=== PATIENT | female | born 1950 | race Caucasian/White ===

== ENCOUNTER 2019-01-15 15:01 | Emergency (ER) | payer MEDICARE, OTHER ==
[2019-01-15] MEDS ORDERED: Sodium Chloride 0.9% 10 ML Syringe FLUSH PRN (16:17)
[2019-01-15] MEDS ORDERED: HYDROmorphone 1 MG/ML Syringe IVPUSH STA (16:18)
[2019-01-15] MEDS ORDERED: Ondansetron 4 MG/2 ML SDV IVPUSH ONE (16:18)
[2019-01-15] MEDS ORDERED: Sodium Chloride 0.9% 1,000 ML IV SCH (16:30)
--- NOTE | 2019-01-15 16:35 | EDM.PDOC ---
ED HPI GENERAL MEDICAL PROBLEM - General Chief Complaint: Abdominal Pain Stated Complaint: ABDOMINAL CRAMPING WITH BLEEDING Time Seen by Provider: 01/15/19 15:44 Source of Information: Reports: Patient, RN Notes Reviewed History Limitations: Reports: No Limitations - History of Present Illness INITIAL COMMENTS - FREE TEXT/NARRATIVE: Patient is a 68-year-old female who presents to the ED today for the evaluation of crampy abdominal pain and rectal bleeding. She states that she has a history of right upper quadrant pain, bloating, weight gain around 6 months now. They have been managing this outpatient taveras and she is scheduled for colonoscopy this January 17. She states that she had some crampy abdominal pain that started yesterday she first felt somewhat constipated and she had some diarrhea. She noted that there was bright red blood in the toilet with the episodes of diarrhea. This has been happening on and off since yesterday she states that the cramping did subside early this morning and that the blood looked as if it was clotting off. It was not a liquid it was clots in the toilet. She called the surgical team to see if she should may be just takes some Imodium to relieve the diarrhea and they warned her that she needed further evaluation for the possibility of diverticulitis. She states that she has been off of her Coumadin since Monday and this she is prescribed for atrial fibrillation. She states that she normally has a BM around every 2-3 days. She denies any urinary symptoms, dizziness, fever, chest pain, shortness of breath or history of anemia. She states that she did feel a little bit weak and had some chills after the diarrhea episodes. She states that she sees did see Vangie Felix as a primary care provider by [facility] recently recommended that she be seen by Bernadine Valentine at the [facility] as they might get her in to a colonoscopy sooner. In his last 6 months and she's been up patient with the [facility] she has had a EMY and Holter monitor for further workup. She states that she has had bleeding from her colon before around 2001. She states that she is still a smoker smoking one half pack per day but denies alcohol use ordered further drug use. She notes that she has had a previous gallbladder removal but still has her uterus and ovaries. Abdomen Pain Score (Numeric/FACES): 6 - Related Data Allergies Allergy/AdvReac Type Severity Reaction Status Date / Time mold Allergy Cannot Verified 12/28/17 09:42 Remember pollen extracts Allergy Cannot Verified 12/28/17 09:42 Remember sulfacetamide Allergy Cannot Verified 12/28/17 09:43 Remember morphine AdvReac Vomiting Verified 03/25/16 09:42 DUST Allergy Cannot Uncoded 12/28/17 09:42 Remember Home Meds: Home Meds Cetirizine HCl [Zyrtec] 1 tab PO DAILY 01/15/19 [History] Diltiazem HCl [Diltiazem ER] 1 tab PO DAILY 01/15/19 [History] Gabapentin [Neurontin] 1 tab PO DAILY 01/15/19 [History] Ondansetron [Zofran ODT] 4 mg PO Q6H PRN #28 tab.dis 01/15/19 [Rx] Ranitidine HCl [Ranitidine] 150 mg PO DAILY 01/15/19 [History] Warfarin [Coumadin] 1 tab PO DAILY 01/15/19 [History] atorvaSTATin [Lipitor] 1 tab PO DAILY 01/15/19 [History] Past Medical History Cardiovascular History: Reports: Afib, High Cholesterol, Hypertension 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: 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: Neurological History: Reports: TIA - Past Surgical History Cardiovascular Surgical History: Reports: AAA Repair GI Surgical History: Reports: Cholecystectomy, Hernia Repair/Other Female Surgical History: Reports: Lithotripsy/ESWL Dermatological Surgical History: Reports: Skin Graft Social & Family History - Tobacco Use Smoking Status *Q: Current Every Day Smoker Years of Tobacco use: 60 Packs/Tins Daily: 1 - Caffeine Use Caffeine Use: Reports: Coffee - Recreational Drug Use Recreational Drug Use: No ED ROS GENERAL - Review of Systems Review Of Systems: See Below Constitutional: Reports: Chills, Weakness, Weight Gain (And bloating over the last 6 months.). Denies: Fever, Weight Loss HEENT: Reports: No Symptoms Respiratory: Reports: No Symptoms Cardiovascular: Reports: No Symptoms Endocrine: Reports: No Symptoms GI/Abdominal: Reports: Abdominal Pain, Bloody Stool, Diarrhea. Denies: Constipation, Nausea, Vomiting : Reports: No Symptoms Musculoskeletal: Reports: No Symptoms Skin: Reports: No Symptoms Neurological: Reports: No Symptoms Psychiatric: Reports: No Symptoms Hematologic/Lymphatic: Reports: No Symptoms Immunologic: Reports: No Symptoms ED EXAM, GI/ABD - Physical Exam Exam: See Below Exam Limited By: No Limitations General Appearance: Alert, WD/WN, No Apparent Distress Ears: Normal External Exam Nose: Normal Inspection, Normal Mucosa, No Blood Throat/Mouth: Normal Inspection, Normal Lips, Normal Oropharynx, Normal Voice, No Airway Compromise Head: Atraumatic, Normocephalic Neck: Normal Inspection Respiratory/Chest: No Respiratory Distress, Lungs Clear, Normal Breath Sounds, No Accessory Muscle Use, Chest Non-Tender Cardiovascular: Normal Peripheral Pulses, Regular Rate, Rhythm, No Murmur GI/Abdominal Exam: Normal Bowel Sounds, Soft, No Distention, No Mass, Tender ( Diffuse tenderness lower abdomen). No: Guarding, Rigid, Rebound Rectal (Female) Exam: Bloody Stool (As reported by the patient.) Extremities: Normal Inspection, Normal Capillary Refill Neurological: Alert, Oriented, No Motor/Sensory Deficits Psychiatric: Normal Affect, Normal Mood Skin Exam: Warm, Dry, Intact, Normal Color, No Rash Course - Vital Signs Last Recorded V/S: Last Vital Signs Temp 98.6 F 01/15/19 15:30 Pulse 64 01/15/19 15:30 Resp 18 01/15/19 15:30 BP 162/77 H 01/15/19 15:30 Pulse Ox 96 01/15/19 15:30 - Orders/Labs/Meds Orders: Active Orders 24 hr Category Date Time Status Peripheral IV Care [RC] . DIRECTED Care 01/15/19 16:17 Ordered Abdomen Pelvis w Cont [CT] Stat Exams 01/15/19 16:18 Ordered UA W/MICROSCOPIC [URIN] Stat Lab 01/15/19 16:18 Ordered Sodium Chloride 0.9% [Normal Saline] 1,000 ml Med 01/15/19 16:30 Ordered IV ASDIRECTED Sodium Chloride 0.9% [Saline Flush] Med 01/15/19 16:17 Ordered 10 ml FLUSH ASDIRECTED PRN Peripheral IV Insertion Adult [OM.PC] Routine Oth 01/15/19 16:17 Ordered Medication Orders Sodium Chloride (Normal Saline) 1,000 mls @ 250 mls/hr IV ASDIRECTED THAO Last Admin: 01/15/19 16:53 Dose: 250 mls/hr Sodium Chloride (Saline Flush) 10 ml FLUSH ASDIRECTED PRN PRN Reason: Keep Vein Open Last Admin: 01/15/19 18:09 Dose: 10 ml Labs: Laboratory Tests 01/15/19 01/15/19 Range/Units 16:35 16:35 WBC 8.78 (3.98-10.04) K/mm3 RBC 5.07 (3.98-5.22) M/mm3 Hgb 14.5 (11.2-15.7) gm/L Hct 44.2 (34.1-44.9) % MCV 87.2 (79.4-94.8) fl MCH 28.6 (25.6-32.2) pg MCHC 32.8 (32.2-35.5) g/dl RDW Std Deviation 48.2 H (36.4-46.3) fL Plt Count 280 (182-369) K/mm3 MPV 9.6 (9.4-12.3) fl Neutrophils % (Manual) 52 (40-60) % Band Neutrophils % 0 (0-10) % Lymphocytes % (Manual) 39 (20-40) % Atypical Lymphs % 0 % Monocytes % (Manual) 6 (2-10) % Eosinophils % (Manual) 2 (0.7-5.8) % Basophils % (Manual) 1 (0.1-1.2) Platelet Estimate Adequate RBC Morph Comment Normal Sodium 140 (136-145) mEq/L Potassium 3.5 (3.5-5.1) mEq/L Chloride 103 (98-107) mEq/L Carbon Dioxide 26 (21-32) mEq/L Anion Gap 14.5 (5-15) BUN 23 H (7-18) mg/dL Creatinine 0.8 (0.55-1.02) mg/dL Est Cr Clr Drug Dosing 56.50 mL/min Estimated GFR (MDRD) > 60 (>60) mL/min BUN/Creatinine Ratio 28.8 H (14-18) Glucose 90 (80-115) mg/dL Calcium 9.5 (8.5-10.1) mg/dL Total Bilirubin 0.8 (0.2-1.0) mg/dL AST 14 L (15-37) U/L ALT 16 (14-59) U/L Alkaline Phosphatase 74 (46-116) U/L Total Protein 7.5 (6.4-8.2) g/dl Albumin 3.3 L (3.4-5.0) g/dl Globulin 4.2 gm/dL Albumin/Globulin Ratio 0.8 L (1-2) Meds: Medications Generic Name Dose Route Start Last Admin Trade Name Freq PRN Reason Stop Dose Admin Sodium Chloride 1,000 mls @ 250 mls/hr 01/15/19 16:30 01/15/19 16:53 Normal Saline IV 250 mls/hr ASDIRECTED THAO Administration Sodium Chloride 10 ml 01/15/19 16:17 01/15/19 18:09 Saline Flush FLUSH 10 ml ASDIRECTED PRN Administration Keep Vein Open Discontinued Medications Generic Name Dose Route Start Last Admin Trade Name Freq PRN Reason Stop Dose Admin Hydromorphone HCl 0.5 mg 01/15/19 16:18 01/15/19 16:48 Dilaudid IVPUSH 01/15/19 16:19 0.5 mg ONETIME STA Administration Iopamidol 100 ml 01/15/19 17:41 01/15/19 17:58 Isovue-300 (61%) IVPUSH 01/15/19 17:42 100 ml ONETIME ONE Administration Metoclopramide HCl 10 mg 01/15/19 17:46 01/15/19 18:09 Reglan IVPUSH 01/15/19 17:47 10 mg ONETIME ONE Administration Ondansetron HCl 4 mg 01/15/19 16:18 01/15/19 16:50 Zofran IVPUSH 01/15/19 16:19 4 mg ONETIME ONE Administration - Re-Assessments/Exams Free Text/Narrative Re-Assessment/Exam: 01/15/19 16:37 Patient presents to the ED for evaluation of rectal bleeding and abdominal pain. I have ordered a CBC, CMP, UA, CT abdomen and pelvis with contrast, IV with fluids, 0.5 mg IV Dilaudid and 4 mg IV Zofran in further management of this. She states that she has had a history of rectal bleeding in the past. Unsure if this could just be a GI bleed or if it is diverticulitis in nature. She is rather tender on the lower quadrants of her abdomen. 01/15/19 18:11 The nurse and x-ray tech told me that the patient was quite nauseous after drinking the oral contrast, I did order 10 the grams IV Reglan for this. Her labs are back and her hemoglobin is normal and other markers and a CBC are within normal limits. Her BUN was slightly elevated which would suggest that she was mildly dehydrated. I have ordered IV fluids and that should help combat this. CT result is pending at this time. She states that her pain is at a tolerable level and is not requesting anything for pain. 01/15/19 18:[address] is back and demonstrate possible mild diffuse colitis. Findings could be due to under distention artifact alternatively. Her hemoglobin level was normal at 14, and shows no other sign of acute blood loss. This should not hold her from having her colonoscopy on . I will provide the patient with the CT results so that they may show the surgery personnel. Departure - Departure Time of Disposition: 19:07 Disposition: Home, Self-Care 01 Condition: Fair Clinical Impression: Blood in stool - Discharge Information *PRESCRIPTION DRUG MONITORING PROGRAM REVIEWED*: No *COPY OF PRESCRIPTION DRUG MONITORING REPORT IN PATIENT HERMELINDO: No Instructions: Gastrointestinal Bleeding, [id number] Referrals: Vangie Felix PA [Primary Care Provider] - Forms: ED Department Discharge Additional Instructions: You have been evaluated in the ED for your bloody stools. Her CT demonstrated that you may have colitis, this should not hold you up from having her colonoscopy this January 17. You have been provided with the printed CT results to show the surgery crew. You have been provided with a prescription for Zofran 1 tab dissolvable under your tongue every 6-8 hours as needed for nausea. This was sent to the [facility] pharmacy in [facility] this is located by [address]. Please follow all previous instructions regarding your colonoscopy prep. I would recommend follow-up with the surgery crew tomorrow in regards of your CT results. Please return to the ED if your symptoms change or worsen. - My Orders Last 24 Hours: My Active Orders 01/15/19 16:17 Peripheral IV Care [RC] . DIRECTED Sodium Chloride 0.9% [Saline Flush] 10 ml FLUSH ASDIRECTED PRN Peripheral IV Insertion Adult [OM.PC] Routine 01/15/19 16:18 Abdomen Pelvis w Cont [CT] Stat UA W/MICROSCOPIC [URIN] Stat 01/15/19 16:30 Sodium Chloride 0.9% [Normal Saline] 1,000 ml IV ASDIRECTED - Assessment/Plan Last 24 Hours: My Active Orders 01/15/19 16:17 Peripheral IV Care [RC] . DIRECTED Sodium Chloride 0.9% [Saline Flush] 10 ml FLUSH ASDIRECTED PRN Peripheral IV Insertion Adult [OM.PC] Routine 01/15/19 16:18 Abdomen Pelvis w Cont [CT] Stat UA W/MICROSCOPIC [URIN] Stat 01/15/19 16:30 Sodium Chloride 0.9% [Normal Saline] 1,000 ml IV ASDIRECTED
[2019-01-15] MEDS ORDERED: Iopamidol 612 MG/ML 100 ML Bottle IVPUSH ONE (17:41)
[2019-01-15] MEDS ORDERED: Metoclopramide 10 MG/2 ML SDV IVPUSH ONE (17:46)
--- NOTE | 2019-01-16 08:12 | CT ---
CT abdomen and pelvis Technique: Multiple axial sections were obtained from above the dome of the diaphragm inferiorly to the pubic symphysis. Intravenous contrast and oral contrast was given. Oral contrast remains within the stomach. Comparison: Previous CT abdomen and pelvis exam of 01/01/18. Findings: Low-density lesion is noted within the left lobe of the liver measuring approximately 2.4 cm. This is most likely due to a cyst. This is stable from previous exam. Second small low density finding is seen within the right lobe. This is believed to be present on previous CT exam and appears without change most likely due to additional cyst which is too small to characterize by Hounsfield unit measurements. Small portion of the visualized lung bases are clear. Dense mitral annulus calcification is noted. Spleen appears within normal limits. Adrenal glands show bilateral nodules. These appeared to be stable from previous CT exam supporting benign etiology. Nodule within the left adrenal gland measures about 3.2 cm in size and nodule within the right adrenal gland measures about 3.6 cm in size. Differences in measurement from prior CT is due to different measurement techniques. Low-density lesion within the mid left kidney is seen which contains a calcification. This is felt to represent a complicated cyst measuring approximately 2.2 cm in size which is stable from previous exam. Smaller low density finding is seen inferiorly within the left kidney measuring 6 mm in size and is also stable. Small fatty lesion versus focal area of scar is seen within the mid right kidney which is felt to be stable and incidental. Exophytic cyst is noted off the right kidney measuring 2.5 cm which is also felt to be seen on previous exam. Pancreas shows a small focal fatty area within the neck which is felt to be incidental and stable. Surgical clips are seen from previous cholecystectomy. Aorta shows evidence of a stent which is stable. No contrast extravasation is seen outside the stent. No retroperitoneal adenopathy or mesenteric abnormalities are seen. Small fat-containing anterior abdominal hernia is seen next to the umbilicus. No pelvic mass or adenopathy is seen. Mild diverticuli are seen within the descending colon. No inflammatory change of diverticulitis is seen. No bowel dilatation is seen. Equivocal wall thickening within the descending colon. Uncertain if this is a real finding or due to lack of distention. Appendix is felt to be seen and is normal in size. Bone window settings were reviewed which show degenerative change scattered throughout the spine. Impression: 1. Multiple findings as noted above which are felt to be stable and benign. 2. Equivocal wall thickening within the colon involving the descending portion. As mentioned above, uncertain if this is due to colitis or due to lack of distention. Endoscopy could be considered to further evaluate. 3. Nothing acute is otherwise appreciated on CT study of the abdomen and pelvis. Diagnostic code #3 I agree with preliminary report from [facility], finalized on 01/15/19, 7:40 PM Central Time
== END 2019-01-15 19:34 | disposition home or self-care (01) ==
LOC: JD.ED 15:01
DX: K92.1 Melena (principal); I10 Essential (primary) hypertension; I48.91 Unspecified atrial fibrillation; F17.210 Nicotine dependence, cigarettes, uncomplicated; Z88.5 Allergy status to narcotic agent; Z88.2 Allergy status to sulfonamides; Z91.09 Other allergy status, other than to drugs and biological substances; Z79.01 Long term (current) use of anticoagulants; Z79.899 Other long term (current) drug therapy; Z86.73 Personal history of transient ischemic attack (TIA), and cerebral infarction without residual deficits; Z90.49 Acquired absence of other specified parts of digestive tract
CPT/HCPCS: 36415; 74177; 80053; 85007; 85027; 96361; 96374; 96375; 99284; J1170; J2405; J2765; J7040; Q9967

== ENCOUNTER 2019-01-31 08:14 | Day surgery (SDC) | payer MEDICARE, OTHER ==
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
[~2019-01-31 08:14] MED LIST: Lactated Ringers 1,000 ML IV SCH; Lidocaine 1% 6 ML ONE; Lidocaine 1%/Sod Bicarbonate in NS 8.4% 1 ML Syringe IDERM PRN; Propofol 200 MG/20 ML SDV ONE; Sodium Chloride 0.9% 10 ML Syringe FLUSH PRN
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
[2019-01-31] MEDS ORDERED: Midazolam 1 MG/ML 2 ML SDV ONE (09:48)
[2019-01-31] MEDS ORDERED: fentaNYL 100 MCG/2 ML SDV ONE (10:03)
--- NOTE | 2019-01-31 10:26 | PCM.OPNOTE ---
- General Post-Op/Procedure Note Date of Surgery/Procedure: 01/31/19 Operative Procedure(s): EGD WITH BIOPSY AND COLONOSOCOPY Pre Op Diagnosis: rectal bleeding and upper abdominal pain epigstric Post-Op Diagnosis: Same Anesthesia Technique: MAC Primary Surgeon: Edmund Eldridge EBL in mLs: 0 Complications: None Condition: Good
--- NOTE | 2019-01-31 10:32 | PCM48HPAN ---
Post Anesthesia Note - EVALUATION WITHIN 48HRS OF ANESTHETIC Vital Signs in Normal Range: Yes Patient Participated in Evaluation: Yes Respiratory Function Stable: Yes Airway Patent: Yes Cardiovascular Function Stable: Yes Hydration Status Stable: Yes Pain Control Satisfactory: Yes Nausea and Vomiting Control Satisfactory: Yes Mental Status Recovered: Yes Pulse Rate: 107 SaO2: 98 Resp Rate: 17 Temperature: 97.8 C Blood Pressure: 92/57
--- NOTE | 2019-02-01 07:25 | OR ---
DATE OF OPERATION: 01/31/2019 SURGEON: Edmund Eldridge MD PREOPERATIVE DIAGNOSIS: Epigastric pain. POSTOPERATIVE DIAGNOSIS: Epigastric pain. OPERATION PERFORMED: Esophagogastroduodenoscopy with biopsy. FINDINGS: She has a little redness in the antrum. Some incompetence of the hiatus. GE junction is located at 38 cm. A sliding hiatal hernia is noted with chronic esophagitis. Body, cardia, and fundus of the stomach are unremarkable as was the balance of the esophagus. The second portion of the duodenum, duodenal bulb, and pyloric channel did not show any acute pathology. ANESTHESIA: Done under IV sedation. DESCRIPTION OF PROCEDURE: The patient was taken to the endoscopy room, placed in a supine position, connected to monitoring equipment, given IV sedation, placed in the left lateral position. A bite block was inserted. Video Olympus gastroscope placed in the posterior oropharynx under direct vision, threaded past the cricopharyngeus, down the esophagus, into the stomach. The stomach was insufflated, and the scope passed through the pylorus to the second portion and then slowly withdrawn showing no acute pathology. Second portion of the duodenum, duodenal bulb, and pyloric channel were unremarkable. Antrum showed some redness. This was biopsied. J-maneuver was performed. Cardia, fundus, and body of the stomach were viewed. Incompetent hiatus was noted. GE junction located at 38 cm with a sliding hiatal hernia. There was no acute pathology at the GE junction. Rest of the esophagus viewed as the scope withdrawn was unremarkable. The patient tolerated the procedure, specimen sent to pathology in a labeled container, and IV sedation continued for colonoscopy. ESTIMATED BLOOD LOSS: MMODAL /[id number]
--- NOTE | 2019-02-01 07:30 | OR ---
DATE OF OPERATION: 01/31/2019 SURGEON: Edmund Eldridge MD PREOPERATIVE DIAGNOSIS: Rectal bleeding. POSTOPERATIVE DIAGNOSIS: Rectal bleeding. OPERATION PERFORMED: Colonoscopy to cecum. FINDINGS: Internal hemorrhoids. There were no angiodysplasias, neoplasias, large tumor masses, ulcerations, or hemorrhoids. ANESTHESIA: Done under IV sedation. DESCRIPTION OF PROCEDURE: The patient was taken to the endoscopy room having been connected to monitoring equipment and given IV sedation for upper GI endoscopy. This was continued for colonoscopy. She was placed in the left lateral position. Perianal area was inspected and was normal. Rectal exam showed good sphincter tone. A video Olympus colonoscope was then introduced into the rectum and threaded up without problem to the cecum, where the appendicular orifice was noted. The prep was excellent. [place] Cleansing Score grade A. The scope was slowly withdrawn showing the cecum, ascending colon, transverse colon, descending colon, sigmoid colon, and rectum. Retroflexed view was done showing internal hemorrhoids. The above noted was found. The patient tolerated the procedure and sent to recovery room in a stable condition. ESTIMATED BLOOD LOSS: MMODAL /[id number]
== END 2019-01-31 13:54 | disposition home or self-care (01) ==
LOC: JD.SDS 08:14
PROVIDERS: ATTEND Surgery
DX: K62.5 Hemorrhage of anus and rectum (principal); K20.9 Esophagitis, unspecified; K44.9 Diaphragmatic hernia without obstruction or gangrene; K64.8 Other hemorrhoids; K21.9 Gastro-esophageal reflux disease without esophagitis; K31.89 Other diseases of stomach and duodenum; R10.11 Right upper quadrant pain; R19.7 Diarrhea, unspecified; R14.0 Abdominal distension (gaseous); I48.91 Unspecified atrial fibrillation; I48.0 Paroxysmal atrial fibrillation; J44.9 Chronic obstructive pulmonary disease, unspecified; F17.210 Nicotine dependence, cigarettes, uncomplicated; M54.30 Sciatica, unspecified side; Z79.1 Long term (current) use of non-steroidal anti-inflammatories (NSAID); Z79.01 Long term (current) use of anticoagulants; Z79.899 Other long term (current) drug therapy
CPT/HCPCS: 36415; 43239; 45378; 85610; 93005; J2001; J2250; J2704; J3010; J7120; 00813

== ENCOUNTER 2019-11-26 10:11 | Day surgery (SDC) | payer MEDICARE, OTHER ==
[~2019-11-26 10:11] MED LIST changes: +Brimonidine 0.2% Ophth Soln 5 ML Bottle EYERT SCH; +Cefuroxime 10 MG/ML SYRINGE EYERT SCH; -Lactated Ringers 1,000 ML IV SCH; -Lidocaine 1% 6 ML ONE; +Lidocaine 1% PF 2 ML SDV INJECT SCH; -Lidocaine 1%/Sod Bicarbonate in NS 8.4% 1 ML Syringe IDERM PRN; +Phenylephrine 2.5% Ophth Soln 2 ML Bot EYERT SCH; +Pilocarpine 4% Ophth Soln 15 ML Bot EYERT SCH; +Polymyxin B/Trimethoprim 10 ML Bottle EYERT SCH; -Propofol 200 MG/20 ML SDV ONE; -Sodium Chloride 0.9% 10 ML Syringe FLUSH PRN; +Tetracaine HCl/PF 0.5% 4 ML Bottle EYERT SCH; +Tropicamide 1% Ophth Soln 15 ML Bottle EYERT SCH
[2019-11-26] MEDS: Ofloxacin 0.3% Ophth Soln 5 ML Bottle EYERT SCH ×4 (10:44→12:25)
[2019-11-26] MEDS: Brimonidine 0.2% Ophth Soln 5 ML Bottle EYERT SCH ×4 (10:51→12:25)
[2019-11-26] MEDS: Phenylephrine 2.5% Ophth Soln 2 ML Bot EYERT SCH ×6 (11:00→12:16)
[2019-11-26] MEDS: Tropicamide 1% Ophth Soln 15 ML Bottle EYERT SCH ×4 (11:07→11:49)
[2019-11-26] MEDS ORDERED: Albuterol 0.083% 2.5 MG/3 ML Neb Soln NEB ONE (11:16)
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
[2019-11-26] MEDS: Tetracaine HCl/PF 0.5% 4 ML Bottle EYERT SCH ×3 (11:57→12:17)
[2019-11-26] MEDS: Lidocaine 1% PF 2 ML SDV INJECT SCH ×2 (12:09→12:17)
[2019-11-26] MEDS: Cefuroxime 10 MG/ML SYRINGE EYERT SCH ×2 (12:17→12:24)
[2019-11-26] MEDS: Pilocarpine 4% Ophth Soln 15 ML Bot EYERT SCH ×2 (12:18→12:25)
--- NOTE | 2019-11-26 12:27 | PCM48HPAN ---
Post Anesthesia Note - EVALUATION WITHIN 48HRS OF ANESTHETIC Vital Signs in Normal Range: Yes Patient Participated in Evaluation: Yes Respiratory Function Stable: Yes Airway Patent: Yes Cardiovascular Function Stable: Yes Hydration Status Stable: Yes Pain Control Satisfactory: Yes Nausea and Vomiting Control Satisfactory: Yes Mental Status Recovered: Yes Vital Signs: Last Vital Signs Temp 36.2 C 11/26/19 10:40 Pulse 70 11/26/19 10:40 Resp 20 11/26/19 10:40 BP 103/80 11/26/19 10:40 Pulse Ox 94 L 11/26/19 10:40
== END 2019-11-26 12:40 | disposition home or self-care (01) ==
LOC: JD.SDS 10:11
PROVIDERS: ATTEND Ophthalmology
DX: H25.811 Combined forms of age-related cataract, right eye (principal); J45.909 Unspecified asthma, uncomplicated; E78.00 Pure hypercholesterolemia, unspecified; I10 Essential (primary) hypertension; F17.210 Nicotine dependence, cigarettes, uncomplicated; E66.9 Obesity, unspecified; Z88.5 Allergy status to narcotic agent; Z88.2 Allergy status to sulfonamides; Z79.899 Other long term (current) drug therapy; Z68.41 Body mass index [BMI] 40.0-44.9, adult
CPT/HCPCS: 66984; 94640; J0697; J2001; V2632; A9270-GY

== ENCOUNTER 2025-04-25 01:29 | Inpatient (IN) | payer MEDICARE, OTHER ==
[2025-04-25] MEDS ORDERED: Sodium Chloride 0.9% 10 ML Syringe FLUSH PRN ×2 (01:36→14:30)
[2025-04-25] MEDS: Albuterol/Ipratropium 3.0-0.5 MG/3 ML Neb Soln NEB SCH ×2 (01:46→16:34)
[2025-04-25 02:07] LABS: BASOPHILS PERCENT AUTO 0.3 % (0.0-1.0); EOSINOPHILS PERCENT AUTO 0.2 % (0.0-6.0); HEMATOCRIT 48.5 % (37.0-47.0); HEMOGLOBIN 14.7 gm/dl (12.0-16.0); IMMATURE GRAN ABSOLUTE AUTO 0.04 K/mm3 (0.00-0.05); IMMATURE GRAN PERCENT AUTO 0.3 % (0.0-0.4); LYMPHOCYTES ABSOLUTE AUTO 0.6 K/mm3 (1.0-4.8); LYMPHOCYTES PERCENT AUTO 5.5 % (24.0-44.0); MEAN CORPUSCULAR HEMOGLOBIN 28.9 pg (28.0-32.0); MEAN CORPUSCULAR HGB CONC 30.3 g/dl (32.0-36.0); MEAN CORPUSCULAR VOLUME 95.5 fl (83.0-99.0); MEAN PLATELET VOLUME 9.8 fl (9.4-12.3); MONOCYTES ABSOLUTE AUTO 0.7 K/mm3 (0.0-0.8); MONOCYTES PERCENT AUTO 5.8 % (0.0-8.0); NEUTROPHILS ABSOLUTE AUTO 10.1 K/mm3 (1.8-7.7); NEUTROPHILS PERCENT AUTO 87.9 % (41.0-71.0); PLATELET COUNT,PLT 218 K/mm3 (150-400); RED BLOOD CELL COUNT 5.08 M/mm3 (4.10-5.30); WHITE BLOOD CELL COUNT,WBC 11.43 K/mm3 (3.9-11.3)
[2025-04-25] MEDS: Magnesium Sulfate 2 GM/50 mL 2 GM in Premix Bag 1 BAG IV ONE (02:17)
[2025-04-25] MEDS: methylPREDNISolone Sodium Succinate 125 MG/2 ML SDV IVPUSH ONE (02:17)
[2025-04-25 02:18] LABS: PH,VENOUS 7.37 (7.30-7.40)
[2025-04-25 02:19] LABS: BASE EXCESS VENOUS 9.9 (-4.0-2.0); BICARBONATE,VENOUS 38.2 meq/L (22-26); O2 SATURATION VENOUS 76.7
[2025-04-25 02:27] LABS: INR 3.34; PROTHROMBIN TIME 32.7 SECONDS (9.7-12.0)
[2025-04-25 02:28] LABS: APPEARANCE,URINE CLEAR (Clear); BILIRUBIN,URINE NEGATIVE (Negative); COLOR,URINE YELLOW (Yellow); GLUCOSE,URINE NEGATIVE (Negative); KETONES,URINE TRACE (Negative); LEUKOCYTE ESTERASE,URINE NEGATIVE (Negative); NITRITE,URINE NEGATIVE (Negative); OCCULT BLOOD,URINE 2+ (Negative); PH,URINE 5.5 (5.0-8.0); PROTEIN,URINE NEGATIVE (Negative); UROBILINOGEN,URINE 0.2 (0.2-1.0)
[2025-04-25 02:37] LABS: LACTIC ACID 0.8 mmol/L (0.4-2.0)
[2025-04-25 02:40] LABS: BACTERIA,URINE FEW /hpf (FEW); MUCUS,URINE FEW /hpf (FEW); WBC,URINE 0-5 /hpf (0-5)
[2025-04-25 02:49] LABS: A/G RATIO 0.8 (1-2); ALBUMIN 3.1 g/dl (3.4-5.0); ANION GAP 10.6 (5-15); BILIRUBIN TOTAL 0.9 mg/dL (0.2-1.0); CALCIUM 9.3 mg/dL (8.5-10.1); EST CRCL DRUG DOSING (CG) 44.1 mL/min; MAGNESIUM 1.8 mg/dL (1.8-2.4); PROTEIN TOTAL,TP 6.8 g/dl (6.4-8.2); TSH 0.915 uIU/mL (0.358-3.74)
[2025-04-25 02:56] LABS: POTASSIUM,K 4.6 mEq/L (3.5-5.1)
[2025-04-25 03:32] LABS: CORONAVIRUS COVID-19 NAA NEGATIVE (NEGATIVE); INFLUENZA A NAA NEGATIVE (NEGATIVE); RESPIRATORY SYNCYTIAL VIR NAA NEGATIVE (NEGATIVE)
[2025-04-25] MEDS: Iopamidol 755 Mg/ML 100 ML Bottle IVPUSH ONE ×3 (03:59→15:11)
[2025-04-25] MEDS: Diltiazem 25 MG/5 ML SDV IVPUSH ONE ×2 (04:29→15:45)
[2025-04-25] MEDS: Albuterol/Ipratropium 3.0-0.5 MG/3 ML Neb Soln NEB ONE (04:43)
[2025-04-25] MEDS: Sodium Chloride 0.9% 500 ML IV ONE (05:08)
[2025-04-25] MEDS: Piperacillin/Tazobactam 4.5 GM in Sodium Chloride 0.9% 100 ML IV ONE (05:08)
[2025-04-25] MEDS: fentaNYL 100 MCG/2 ML SDV IVPUSH ONE ×2 (05:18→13:53)
[2025-04-25] MEDS: Metoprolol Tartrate 5 MG/5 ML SDV IVPUSH ONE ×2 (07:40→11:47)
[2025-04-25] MEDS: HYDROmorphone 0.5 MG/0.5 ML Syringe IVPUSH ONE ×2 (07:49→09:07)
[2025-04-25 10:52] LABS: BASE EXCESS ARTERIAL 8.4 (-2-2.0); BICARBONATE,ARTERIAL 36.1 meq/L (22.0-26.0); O2 SATURATION ARTERIAL 89.1 % (96.0-97.0)
[2025-04-25 11:00] LABS: HEMOGLOBIN A1C 7.2 %
[2025-04-25] MEDS: cefTRIAXone 2 GM Vial IVPUSH SCH (11:13)
[2025-04-25] MEDS: Lidocaine 4% Patch TOP SCH (11:13)
[2025-04-25] MEDS: Acetaminophen 325 MG Tab PO PRN (12:21)
[2025-04-25] MEDS: fentaNYL 100 MCG/2 ML SDV IVPUSH PRN (12:52)
[2025-04-25] MEDS: Metoclopramide 10 MG/2 ML SDV IVPUSH ONE (14:32)
[2025-04-25] MEDS: LORazepam 2 MG/ML SDV IVPUSH ONE ×2 (14:41→15:40)
[2025-04-25] MEDS ORDERED: Cyclobenzaprine 10 MG Tab PO PRN (14:50)
[2025-04-25] MEDS ORDERED: Sodium Chloride 0.9% 100 ML IV SCH (15:00)
[2025-04-25] MEDS: Nicotine 7 MG/24 Hr Patch TRDERM SCH (15:21)
[2025-04-25] MEDS: WATER IV SCH (15:23)
[2025-04-25] MEDS: DILTIAZEM IV SCH (15:23)
[2025-04-25] MEDS: DEXTROSE IV SCH (15:23)
[2025-04-25] MEDS: guaiFENesin/Dextromethorphan 100-10 MG/5 ML Soln 5 ML Cup PO SCH (15:25)
[2025-04-25] MEDS: Nystatin Topical Powder 15 GM Bottle TOP SCH (15:28)
[2025-04-25] MEDS: Insulin Lispro 100 Unit/ML 3 ML KwikPen SUBCUT SCH (17:23)
[2025-04-25 18:33] LABS: BASOPHILS PERCENT AUTO 0.1 % (0.0-1.0); HEMATOCRIT 45.2 % (37.0-47.0); HEMOGLOBIN 14.2 gm/dl (12.0-16.0); IMMATURE GRAN ABSOLUTE AUTO 0.03 K/mm3 (0.00-0.05); IMMATURE GRAN PERCENT AUTO 0.3 % (0.0-0.4); LYMPHOCYTES ABSOLUTE AUTO 0.5 K/mm3 (1.0-4.8); LYMPHOCYTES PERCENT AUTO 4.5 % (24.0-44.0); MEAN CORPUSCULAR HEMOGLOBIN 29.2 pg (28.0-32.0); MEAN CORPUSCULAR HGB CONC 31.4 g/dl (32.0-36.0); MEAN PLATELET VOLUME 9.9 fl (9.4-12.3); MONOCYTES ABSOLUTE AUTO 0.6 K/mm3 (0.0-0.8); MONOCYTES PERCENT AUTO 5.1 % (0.0-8.0); PLATELET COUNT,PLT 211 K/mm3 (150-400); RED BLOOD CELL COUNT 4.86 M/mm3 (4.10-5.30); WHITE BLOOD CELL COUNT,WBC 11.11 K/mm3 (3.9-11.3)
[2025-04-25] MEDS: Warfarin** 1 MG TABLET PO SCH (18:38)
[2025-04-25 19:01] LABS: LACTIC ACID 0.9 mmol/L (0.4-2.0)
[2025-04-25] MEDS: LORazepam 2 MG/ML SDV IVPUSH PRN (19:07)
[2025-04-25 19:14] LABS: A/G RATIO 0.8 (1-2); ALBUMIN 2.9 g/dl (3.4-5.0); ANION GAP 9.3 (5-15); BILIRUBIN TOTAL 0.7 mg/dL (0.2-1.0); CALCIUM 9.4 mg/dL (8.5-10.1); EST CRCL DRUG DOSING (CG) 44.1 mL/min; MAGNESIUM 2.5 mg/dL (1.8-2.4); PHOSPHORUS 3.7 mg/dL (2.6-4.7); POTASSIUM,K 4.3 mEq/L (3.5-5.1); PROTEIN TOTAL,TP 6.5 g/dl (6.4-8.2)
[2025-04-25] MEDS: Rosuvastatin 10 MG Tab PO SCH (20:03)
[2025-04-25] MEDS: Flecainide 50 MG Tab PO SCH (20:03)
[2025-04-25] MEDS: Doxycycline 100 MG in Sodium Chloride 0.9% 100 ML IV SCH (20:04)
[2025-04-25] MEDS: Metoprolol Tartrate 25 MG Tab PO SCH (20:05)
[2025-04-25] MEDS: Remove Patch **LIDOCAINE TRDERM SCH (21:09)
[2025-04-25] MEDS: Phenylephrine 10 MG in Sodium Chloride 0.9% 99 ML IV SCH (21:39)
[2025-04-26] MEDS: Pantoprazole 40 MG Tab.CR PO SCH (06:20)
[2025-04-26 07:49] LABS: BASOPHILS PERCENT AUTO 0.2 % (0.0-1.0); EOSINOPHILS ABSOLUTE AUTO 0.1 K/mm3 (0.0-0.4); EOSINOPHILS PERCENT AUTO 0.5 % (0.0-6.0); HEMATOCRIT 44.6 % (37.0-47.0); HEMOGLOBIN 14.1 gm/dl (12.0-16.0); IMMATURE GRAN ABSOLUTE AUTO 0.04 K/mm3 (0.00-0.05); IMMATURE GRAN PERCENT AUTO 0.4 % (0.0-0.4); LYMPHOCYTES ABSOLUTE AUTO 0.5 K/mm3 (1.0-4.8); LYMPHOCYTES PERCENT AUTO 4.7 % (24.0-44.0); MEAN CORPUSCULAR HGB CONC 31.6 g/dl (32.0-36.0); MEAN CORPUSCULAR VOLUME 91.8 fl (83.0-99.0); MEAN PLATELET VOLUME 9.5 fl (9.4-12.3); MONOCYTES ABSOLUTE AUTO 0.7 K/mm3 (0.0-0.8); MONOCYTES PERCENT AUTO 6.8 % (0.0-8.0); NEUTROPHILS ABSOLUTE AUTO 9.4 K/mm3 (1.8-7.7); NEUTROPHILS PERCENT AUTO 87.4 % (41.0-71.0); PLATELET COUNT,PLT 185 K/mm3 (150-400); RED BLOOD CELL COUNT 4.86 M/mm3 (4.10-5.30); WHITE BLOOD CELL COUNT,WBC 10.76 K/mm3 (3.9-11.3)
[2025-04-26] MEDS: Ezetimibe 10 MG Tab PO SCH (08:24)
[2025-04-26] MEDS: cefTRIAXone 1 GM Vial IVPUSH SCH (08:25)
[2025-04-26 08:34] LABS: INR 3.61; PROTHROMBIN TIME 35.2 SECONDS (9.7-12.0)
[2025-04-26 08:49] LABS: A/G RATIO 0.8 (1-2); ALBUMIN 2.7 g/dl (3.4-5.0); ANION GAP 7.1 (5-15); BILIRUBIN TOTAL 0.8 mg/dL (0.2-1.0); CALCIUM 8.8 mg/dL (8.5-10.1); CREATININE 0.8 mg/dL (0.55-1.02); EST CRCL DRUG DOSING (CG) 55.13 mL/min; MAGNESIUM 2.1 mg/dL (1.8-2.4); PHOSPHORUS 2.4 mg/dL (2.6-4.7); POTASSIUM,K 4.1 mEq/L (3.5-5.1); PROTEIN TOTAL,TP 6.3 g/dl (6.4-8.2)
[2025-04-26 08:50] LABS: FOLIC ACID 16.2 ng/mL (8.6-58.9)
[2025-04-26] MEDS ORDERED: methylPREDNISolone Sodium Succinate 40 MG/1 ML SDV IVPUSH SCH (09:00)
[2025-04-26] MEDS ORDERED: Metoprolol Succinate 25 MG Tab.ER PO SCH (09:00)
[2025-04-26 09:23] LABS: C-REACTIVE PROTEIN 0.98 mg/dL (<0.30); VITAMIN D,25-HYDROXY 72.6 ng/ml (30.0-100.0)
[2025-04-26] MEDS: methylPREDNISolone Sodium Succinate 40 MG/1 ML SDV IVPUSH SCH (09:37)
[2025-04-26] MEDS: Sodium Phosphate 30 MMOLE in Sodium Chloride 0.9% 250 ML IV ONE (10:53)
[2025-04-26] MEDS: LORazepam 2 MG/ML SDV IVPUSH ONE (11:21)
[2025-04-26] MEDS: LORazepam 2 MG/ML SDV IVPUSH PRN (11:47)
[2025-04-26] MEDS: Remove Patch **NICOTINE TRDERM SCH (15:12)
[2025-04-26] MEDS: Piperacillin/Tazobactam 4.5 GM in Sodium Chloride 0.9% 100 ML IV SCH (16:49)
[2025-04-26] MEDS: Albuterol/Ipratropium 3.0-0.5 MG/3 ML Neb Soln NEB PRN (18:05)
[2025-04-26] MEDS: oxyCODONE 5 MG Tab PO PRN (18:08)
[2025-04-26] MEDS: Warfarin** 1 MG TABLET PO SCH (18:15)
[2025-04-27 05:34] LABS: BASOPHILS PERCENT AUTO 0.1 % (0.0-1.0); HEMATOCRIT 43.8 % (37.0-47.0); HEMOGLOBIN 13.7 gm/dl (12.0-16.0); IMMATURE GRAN ABSOLUTE AUTO 0.05 K/mm3 (0.00-0.05); IMMATURE GRAN PERCENT AUTO 0.6 % (0.0-0.4); LYMPHOCYTES ABSOLUTE AUTO 0.3 K/mm3 (1.0-4.8); MEAN CORPUSCULAR HEMOGLOBIN 28.8 pg (28.0-32.0); MEAN CORPUSCULAR HGB CONC 31.3 g/dl (32.0-36.0); MONOCYTES ABSOLUTE AUTO 0.2 K/mm3 (0.0-0.8); MONOCYTES PERCENT AUTO 2.2 % (0.0-8.0); NEUTROPHILS ABSOLUTE AUTO 7.7 K/mm3 (1.8-7.7); NEUTROPHILS PERCENT AUTO 93.1 % (41.0-71.0); PLATELET COUNT,PLT 189 K/mm3 (150-400); RED BLOOD CELL COUNT 4.76 M/mm3 (4.10-5.30); WHITE BLOOD CELL COUNT,WBC 8.24 K/mm3 (3.9-11.3)
[2025-04-27 05:48] LABS: INR 3.16; PROTHROMBIN TIME 31.1 SECONDS (9.7-12.0)
[2025-04-27 06:07] LABS: SLIDE REVIEW ABNORMAL SMEAR
[2025-04-27 06:09] LABS: A/G RATIO 0.7 (1-2); ALBUMIN 2.6 g/dl (3.4-5.0); ANION GAP 10.1 (5-15); BILIRUBIN TOTAL 0.9 mg/dL (0.2-1.0); BUN/CREATININE RATIO 47.5 (14-18); C-REACTIVE PROTEIN 0.79 mg/dL (<0.30); CALCIUM 9.1 mg/dL (8.5-10.1); CREATININE 0.8 mg/dL (0.55-1.02); EST CRCL DRUG DOSING (CG) 55.13 mL/min; MAGNESIUM 2.2 mg/dL (1.8-2.4); PHOSPHORUS 3.8 mg/dL (2.6-4.7); POTASSIUM,K 4.1 mEq/L (3.5-5.1); PROTEIN TOTAL,TP 6.2 g/dl (6.4-8.2)
[2025-04-27] MEDS: Sodium Chloride 0.9% 1,000 ML IV SCH (07:36)
[2025-04-27] MEDS: Metoprolol Tartrate 5 MG/5 ML SDV IVPUSH ONE ×2 (08:14→08:59)
[2025-04-27] MEDS: Furosemide 20 MG Tab PO SCH (10:09)
[2025-04-27] MEDS: Metoprolol Succinate 25 MG Tab.ER PO SCH (10:10)
[2025-04-27] MEDS: Furosemide 20 MG/2 ML VIAL IVPUSH ONE (16:28)
[2025-04-27] MEDS: Warfarin 2.5 MG Tab PO SCH (18:17)
[2025-04-27] MEDS: Metoprolol Tartrate 25 MG Tab PO SCH (20:00)
[2025-04-27] MEDS: methylPREDNISolone Sodium Succinate 40 MG/1 ML SDV IVPUSH SCH (21:15)
[2025-04-28] MEDS: Sodium Chloride 0.9% 100 ML ONE (00:26)
[2025-04-28 05:43] LABS: HEMATOCRIT 46.9 % (37.0-47.0); HEMOGLOBIN 14.9 gm/dl (12.0-16.0); IMMATURE GRAN ABSOLUTE AUTO 0.05 K/mm3 (0.00-0.05); IMMATURE GRAN PERCENT AUTO 0.5 % (0.0-0.4); LYMPHOCYTES ABSOLUTE AUTO 0.3 K/mm3 (1.0-4.8); LYMPHOCYTES PERCENT AUTO 3.6 % (24.0-44.0); MEAN CORPUSCULAR HEMOGLOBIN 28.7 pg (28.0-32.0); MEAN CORPUSCULAR HGB CONC 31.8 g/dl (32.0-36.0); MEAN CORPUSCULAR VOLUME 90.4 fl (83.0-99.0); MEAN PLATELET VOLUME 10.5 fl (9.4-12.3); MONOCYTES ABSOLUTE AUTO 0.4 K/mm3 (0.0-0.8); MONOCYTES PERCENT AUTO 3.9 % (0.0-8.0); NEUTROPHILS ABSOLUTE AUTO 8.7 K/mm3 (1.8-7.7); PLATELET COUNT,PLT 181 K/mm3 (150-400); RED BLOOD CELL COUNT 5.19 M/mm3 (4.10-5.30); WHITE BLOOD CELL COUNT,WBC 9.44 K/mm3 (3.9-11.3)
[2025-04-28 06:02] LABS: INR 3.21; PROTHROMBIN TIME 31.5 SECONDS (9.7-12.0)
[2025-04-28 06:14] LABS: SLIDE REVIEW ABNORMAL SMEAR
[2025-04-28 06:28] LABS: A/G RATIO 0.8 (1-2); ALBUMIN 2.7 g/dl (3.4-5.0); ANION GAP 9.9 (5-15); BUN/CREATININE RATIO 47.8 (14-18); C-REACTIVE PROTEIN 0.35 mg/dL (<0.30); CALCIUM 9.1 mg/dL (8.5-10.1); CREATININE 0.9 mg/dL (0.55-1.02); MAGNESIUM 2.1 mg/dL (1.8-2.4); PHOSPHORUS 3.7 mg/dL (2.6-4.7); POTASSIUM,K 3.9 mEq/L (3.5-5.1); PROTEIN TOTAL,TP 6.3 g/dl (6.4-8.2)
[2025-04-28] MEDS: Metoprolol Tartrate 5 MG/5 ML SDV IVPUSH PRN (07:21)
[2025-04-28] MEDS ORDERED: Metoprolol Tartrate 5 MG in Sodium Chloride 0.9% 50 ML IV ONE (09:20)
[2025-04-28] MEDS: Metoprolol Tartrate 25 MG Tab PO ONE (09:41)
[2025-04-28] MEDS: Metoprolol Tartrate 5 MG/5 ML SDV IVPUSH ONE (09:41)
[2025-04-28] MEDS: Furosemide 20 MG/2 ML VIAL IVPUSH SCH (09:41)
[2025-04-28] MEDS: DILTIAZEM IV SCH (10:28)
[2025-04-28] MEDS: DEXTROSE IV SCH (10:28)
[2025-04-28] MEDS: WATER IV SCH (10:28)
[2025-04-28 11:17] LABS: O2 SATURATION ARTERIAL 91.7 % (96.0-97.0)
[2025-04-28 11:18] LABS: BASE EXCESS ARTERIAL 11.3 (-2-2.0); BICARBONATE,ARTERIAL 35.9 meq/L (22.0-26.0)
[2025-04-28] MEDS: Furosemide 20 MG/2 ML VIAL IVPUSH ONE (15:29)
[2025-04-28] MEDS: Warfarin** 1 MG TABLET PO SCH (18:35)
[2025-04-29 04:35] LABS: BASOPHILS PERCENT AUTO 0.1 % (0.0-1.0); HEMATOCRIT 45.8 % (37.0-47.0); HEMOGLOBIN 14.6 gm/dl (12.0-16.0); IMMATURE GRAN ABSOLUTE AUTO 0.07 K/mm3 (0.00-0.05); IMMATURE GRAN PERCENT AUTO 0.5 % (0.0-0.4); LYMPHOCYTES ABSOLUTE AUTO 0.4 K/mm3 (1.0-4.8); LYMPHOCYTES PERCENT AUTO 2.9 % (24.0-44.0); MEAN CORPUSCULAR HEMOGLOBIN 29.2 pg (28.0-32.0); MEAN CORPUSCULAR HGB CONC 31.9 g/dl (32.0-36.0); MEAN CORPUSCULAR VOLUME 91.6 fl (83.0-99.0); MEAN PLATELET VOLUME 9.9 fl (9.4-12.3); MONOCYTES ABSOLUTE AUTO 0.3 K/mm3 (0.0-0.8); MONOCYTES PERCENT AUTO 2.2 % (0.0-8.0); NEUTROPHILS ABSOLUTE AUTO 12.7 K/mm3 (1.8-7.7); NEUTROPHILS PERCENT AUTO 94.3 % (41.0-71.0); PLATELET COUNT,PLT 204 K/mm3 (150-400); WHITE BLOOD CELL COUNT,WBC 13.43 K/mm3 (3.9-11.3)
[2025-04-29 04:51] LABS: INR 3.75; PROTHROMBIN TIME 36.5 SECONDS (9.7-12.0)
[2025-04-29 05:09] LABS: A/G RATIO 0.8 (1-2); ALBUMIN 2.8 g/dl (3.4-5.0); ANION GAP 7.6 (5-15); BILIRUBIN TOTAL 1.2 mg/dL (0.2-1.0); C-REACTIVE PROTEIN 0.17 mg/dL (<0.30); CALCIUM 9.1 mg/dL (8.5-10.1); EST CRCL DRUG DOSING (CG) 44.1 mL/min; MAGNESIUM 2.3 mg/dL (1.8-2.4); POTASSIUM,K 3.6 mEq/L (3.5-5.1); PROTEIN TOTAL,TP 6.4 g/dl (6.4-8.2)
[2025-04-29 05:10] LABS: SLIDE REVIEW ABNORMAL SMEAR
[2025-04-29] MEDS: Furosemide 40 MG/4 ML VIAL IVPUSH ONE (08:34)
[2025-04-29] MEDS: Metoprolol Tartrate 50 MG Tab PO SCH (08:36)
[2025-04-29] MEDS: Albuterol/Ipratropium 3.0-0.5 MG/3 ML Neb Soln NEB SCH (12:59)
[2025-04-29] MEDS: Insulin Glargine,Human Rec. Analog 100 Units/ML 3 ML Pen SUBCUT SCH (13:07)
[2025-04-29] MEDS: methylPREDNISolone Sodium Succinate 40 MG/1 ML SDV IVPUSH SCH (16:11)
[2025-04-29] MEDS: Docusate Sodium 100 MG Cap PO PRN (16:19)
[2025-04-29] MEDS: Warfarin Sliding Scale PO SCH (18:25)
[2025-04-29] MEDS: Ondansetron 4 MG/2 ML SDV IVPUSH PRN (18:51)
[2025-04-29] MEDS: Metoprolol Tartrate 25 MG Tab PO ONE (20:23)
[2025-04-29] MEDS: Gabapentin 300 MG Cap PO PRN (20:23)
[2025-04-30] MEDS: Polyethylene Glycol 3350 Powder 17 GM Packet PO PRN (04:24)
[2025-04-30] MEDS: Metoprolol Tartrate 25 MG Tab PO ONE (04:25)
[2025-04-30 04:29] LABS: BASOPHILS PERCENT AUTO 0.1 % (0.0-1.0); HEMATOCRIT 44.1 % (37.0-47.0); IMMATURE GRAN ABSOLUTE AUTO 0.05 K/mm3 (0.00-0.05); IMMATURE GRAN PERCENT AUTO 0.4 % (0.0-0.4); LYMPHOCYTES ABSOLUTE AUTO 0.4 K/mm3 (1.0-4.8); MEAN CORPUSCULAR HEMOGLOBIN 29.1 pg (28.0-32.0); MEAN CORPUSCULAR HGB CONC 31.7 g/dl (32.0-36.0); MEAN CORPUSCULAR VOLUME 91.7 fl (83.0-99.0); MONOCYTES ABSOLUTE AUTO 0.4 K/mm3 (0.0-0.8); MONOCYTES PERCENT AUTO 3.5 % (0.0-8.0); NEUTROPHILS ABSOLUTE AUTO 11.6 K/mm3 (1.8-7.7); PLATELET COUNT,PLT 198 K/mm3 (150-400); RED BLOOD CELL COUNT 4.81 M/mm3 (4.10-5.30); WHITE BLOOD CELL COUNT,WBC 12.51 K/mm3 (3.9-11.3)
[2025-04-30 04:45] LABS: INR 4.21; PROTHROMBIN TIME 40.6 SECONDS (9.7-12.0)
[2025-04-30 05:06] LABS: A/G RATIO 0.8 (1-2); ALBUMIN 2.6 g/dl (3.4-5.0); ANION GAP 6.7 (5-15); BILIRUBIN TOTAL 1.2 mg/dL (0.2-1.0); BUN/CREATININE RATIO 58.9 (14-18); C-REACTIVE PROTEIN 0.06 mg/dL (<0.30); CALCIUM 9.1 mg/dL (8.5-10.1); CREATININE 0.9 mg/dL (0.55-1.02); MAGNESIUM 2.2 mg/dL (1.8-2.4); POTASSIUM,K 3.7 mEq/L (3.5-5.1); PROTEIN TOTAL,TP 5.8 g/dl (6.4-8.2)
[2025-04-30 06:10] LABS: SLIDE REVIEW ABNORMAL SMEAR
[2025-04-30] MEDS: Metoprolol Tartrate 50 MG Tab PO SCH (08:48)
[2025-04-30] MEDS: methylPREDNISolone Sodium Succinate 40 MG/1 ML SDV IVPUSH SCH (09:15)
[2025-04-30] MEDS: guaiFENesin 600 MG Tab.ER PO SCH (09:16)
[2025-04-30] MEDS: Furosemide 20 MG/2 ML VIAL IVPUSH ONE (09:21)
[2025-04-30] MEDS: Insulin Glargine,Human Rec. Analog 100 Units/ML 3 ML Pen SUBCUT ONE (10:40)
[2025-04-30] MEDS: Insulin Lispro 100 Unit/ML 3 ML KwikPen SUBCUT SCH (16:42)
[2025-04-30] MEDS: Warfarin Sliding Scale PO SCH (17:22)
[2025-05-01 07:08] LABS: EOSINOPHILS ABSOLUTE AUTO 0.1 K/mm3 (0.0-0.4); EOSINOPHILS PERCENT AUTO 1.2 % (0.0-6.0); HEMATOCRIT 43.8 % (37.0-47.0); HEMOGLOBIN 13.6 gm/dl (12.0-16.0); IMMATURE GRAN ABSOLUTE AUTO 0.02 K/mm3 (0.00-0.05); IMMATURE GRAN PERCENT AUTO 0.2 % (0.0-0.4); LYMPHOCYTES ABSOLUTE AUTO 0.9 K/mm3 (1.0-4.8); LYMPHOCYTES PERCENT AUTO 7.7 % (24.0-44.0); MEAN CORPUSCULAR HEMOGLOBIN 28.9 pg (28.0-32.0); MEAN CORPUSCULAR HGB CONC 31.1 g/dl (32.0-36.0); MEAN PLATELET VOLUME 10.4 fl (9.4-12.3); MONOCYTES ABSOLUTE AUTO 0.6 K/mm3 (0.0-0.8); MONOCYTES PERCENT AUTO 5.3 % (0.0-8.0); NEUTROPHILS ABSOLUTE AUTO 9.4 K/mm3 (1.8-7.7); NEUTROPHILS PERCENT AUTO 85.6 % (41.0-71.0); PLATELET COUNT,PLT 176 K/mm3 (150-400); RED BLOOD CELL COUNT 4.71 M/mm3 (4.10-5.30); WHITE BLOOD CELL COUNT,WBC 10.98 K/mm3 (3.9-11.3)
[2025-05-01 07:29] LABS: INR 2.85; PROTHROMBIN TIME 28.2 SECONDS (9.7-12.0)
[2025-05-01 07:49] LABS: A/G RATIO 0.8 (1-2); ALANINE AMINOTRANSFERASE,ALT 53 U/L (14-59); ALBUMIN 2.4 g/dl (3.4-5.0); ALKALINE PHOSPHATASE 49 U/L (46-116); ANION GAP 3.8 (5-15); ASPARTATE AMNIOTRANSFERASE,AST 22 U/L (15-37); BILIRUBIN TOTAL 1.1 mg/dL (0.2-1.0); BLOOD UREA NITROGEN,BUN 54 mg/dL (7-18); CARBON DIOXIDE,CO2 37 mEq/L (21-32); CHLORIDE,CL 105 mEq/L (98-107); ESTIMATED GFR 58 mL/min (>60); GLUCOSE RANDOM 96 mg/dL (70-99); MAGNESIUM 2.1 mg/dL (1.8-2.4); POTASSIUM,K 3.8 mEq/L (3.5-5.1); PROTEIN TOTAL,TP 5.4 g/dl (6.4-8.2); SODIUM,NA 142 mEq/L (136-145)
[2025-05-01] MEDS: predniSONE 20 MG Tab PO ONE (08:00)
[2025-05-01 08:03] LABS: C-REACTIVE PROTEIN < 0.05 mg/dL (<0.30)
[2025-05-01] MEDS: Flecainide 50 MG Tab PO SCH (08:44)
[2025-05-01] MEDS: Furosemide 20 MG Tab PO SCH (08:44)
[2025-05-01] MEDS ORDERED: Insulin Glargine,Human Rec. Analog 100 Units/ML 3 ML Pen SUBCUT SCH (09:00)
[2025-05-01] MEDS ORDERED: Insulin Glargine,Human Rec. Analog 100 Units/ML 3 ML Pen SUBCUT ONE (09:18)
[2025-05-01] MEDS: Albuterol 0.083% 2.5 MG/3 ML Neb Soln NEB PRN (09:47)
[2025-05-01] MEDS: Insulin Glargine,Human Rec. Analog 100 Units/ML 3 ML Pen SUBCUT SCH (10:00)
[2025-05-01] MEDS: Loperamide 2 MG Cap PO PRN (11:07)
[2025-05-01] MEDS: Warfarin** 1 MG TABLET PO SCH (18:48)
[2025-05-01] MEDS: Melatonin 3 MG Tab PO ONE (21:20)
[2025-05-02] MEDS: predniSONE 20 MG Tab PO SCH (06:54)
[2025-05-02 07:53] LABS: INR 1.57; PROTHROMBIN TIME 16.2 SECONDS (9.7-12.0)
[2025-05-02 07:58] LABS: ANION GAP 4.8 (5-15); BUN/CREATININE RATIO 57.5 (14-18); CREATININE 0.8 mg/dL (0.55-1.02); EST CRCL DRUG DOSING (CG) 55.13 mL/min; POTASSIUM,K 3.8 mEq/L (3.5-5.1)
[2025-05-02] MEDS: Metoprolol Succinate 25 MG Tab.ER PO ONE (11:28)
[2025-05-02] MEDS: Metoprolol Tartrate 50 MG Tab PO ONE (11:52)
[2025-05-02] MEDS ORDERED: Warfarin 5 MG Tab PO SCH (18:00)
== END 2025-05-02 13:45 | disposition home health service (06) | DRG 193 ==
LOC: JD.ED 01:29 → JD.MS 06:54 → JD.ICU 15:00
PROVIDERS: ADMIT Student in an Organized Health Care Education/Training Program; ATTEND Internal Medicine
PROC: 5A09357 Assistance with Respiratory Ventilation, Less than 24 Consecutive Hours, Continuous Positive Airway Pressure (ICD-10-PCS; principal; 2025-04-25)
PROC: 5A0935A Assistance with Respiratory Ventilation, Less than 24 Consecutive Hours, High Flow/Velocity Cannula (ICD-10-PCS; 2025-04-25)
PROC: 4A133R1 Monitoring of Arterial Saturation, Peripheral, Percutaneous Approach (ICD-10-PCS; 2025-04-25)
DX: J18.9 Pneumonia, unspecified organism (principal); I50.31 Acute diastolic (congestive) heart failure; J96.21 Acute and chronic respiratory failure with hypoxia; J96.22 Acute and chronic respiratory failure with hypercapnia; R91.1 Solitary pulmonary nodule; J44.1 Chronic obstructive pulmonary disease with (acute) exacerbation; M54.50 Low back pain, unspecified; I47.19 Other supraventricular tachycardia; Z88.5 Allergy status to narcotic agent; I48.92 Unspecified atrial flutter; J44.0 Chronic obstructive pulmonary disease with (acute) lower respiratory infection; G93.40 Encephalopathy, unspecified; W19.XXXA Unspecified fall, initial encounter; I48.0 Paroxysmal atrial fibrillation; Z66 Do not resuscitate; E78.00 Pure hypercholesterolemia, unspecified; Z87.442 Personal history of urinary calculi; Z98.890 Other specified postprocedural states; I11.0 Hypertensive heart disease with heart failure; Z86.79 Personal history of other diseases of the circulatory system; M54.9 Dorsalgia, unspecified; G89.29 Other chronic pain; Z86.73 Personal history of transient ischemic attack (TIA), and cerebral infarction without residual deficits; E66.9 Obesity, unspecified; Z85.828 Personal history of other malignant neoplasm of skin; Z90.49 Acquired absence of other specified parts of digestive tract; Z95.828 Presence of other vascular implants and grafts; E11.42 Type 2 diabetes mellitus with diabetic polyneuropathy; Z86.16 Personal history of COVID-19; Z85.118 Personal history of other malignant neoplasm of bronchus and lung; R79.1 Abnormal coagulation profile; K21.9 Gastro-esophageal reflux disease without esophagitis; R10.13 Epigastric pain; F17.210 Nicotine dependence, cigarettes, uncomplicated; R91.8 Other nonspecific abnormal finding of lung field; N28.1 Cyst of kidney, acquired; N20.0 Calculus of kidney; K57.90 Diverticulosis of intestine, part unspecified, without perforation or abscess without bleeding; Z88.6 Allergy status to analgesic agent; Z88.2 Allergy status to sulfonamides; Z79.899 Other long term (current) drug therapy; Z79.52 Long term (current) use of systemic steroids; Z79.01 Long term (current) use of anticoagulants; M75.101 Unspecified rotator cuff tear or rupture of right shoulder, not specified as traumatic; E27.8 Other specified disorders of adrenal gland; M43.8X4 Other specified deforming dorsopathies, thoracic region; K76.89 Other specified diseases of liver; I25.10 Atherosclerotic heart disease of native coronary artery without angina pectoris; K43.9 Ventral hernia without obstruction or gangrene; K42.9 Umbilical hernia without obstruction or gangrene; Z68.36 Body mass index [BMI] 36.0-36.9, adult; I27.20 Pulmonary hypertension, unspecified
CPT/HCPCS: 0241U; 36415; 36600; 70450; 71045; 71275; 72125; 72191; 73552; 73590; 74175; 74177; 80048; 80053; 80179; 80307; 81001; 82140; 82306; 82550; 82607; 82746; 82803; 82947; 83036; 83605; 83690; 83735; 83880; 84100; 84443; 84484; 85025; 85610; 86140; 86738; 87040; 92610; 93005; 93306; 94640; 94660; 94668; 94762; 96361; 96365; 96366; 96367; 96375; 97110; 97112; 97116; 97161; 97162; 97166; 97530; 97535; 99285; 93010; 99223; 99232; 99233; 99239; A9270-GY; C1758; J0696; J1171; J1815-GY; J1938; J2060; J2371; J2405; J2543; J2765; J2919; J3010; J3475; J3490; J7030; J7050; J7512; Q9967

== ENCOUNTER 2025-06-10 08:42 | Emergency (ER) | payer MEDICARE, OTHER ==
[2025-06-10] MEDS ORDERED: Sodium Chloride 0.9% 10 ML Syringe FLUSH PRN (09:16)
[2025-06-10] MEDS: Albuterol 0.083% 2.5 MG/3 ML Neb Soln NEB ONE (09:23)
[2025-06-10] MEDS: methylPREDNISolone Sodium Succinate 125 MG/2 ML SDV IVPUSH ONE (09:27)
[2025-06-10 09:31] LABS: BASOPHILS ABSOLUTE AUTO 0.1 K/mm3 (0.0-0.2); BASOPHILS PERCENT AUTO 1.2 % (0.0-1.0); EOSINOPHILS ABSOLUTE AUTO 0.1 K/mm3 (0.0-0.4); EOSINOPHILS PERCENT AUTO 0.7 % (0.0-6.0); IMMATURE GRAN ABSOLUTE AUTO 0.10 K/mm3 (0.00-0.05); IMMATURE GRAN PERCENT AUTO 1.0 % (0.0-0.4); LYMPHOCYTES ABSOLUTE AUTO 0.8 K/mm3 (1.0-4.8); LYMPHOCYTES PERCENT AUTO 7.8 % (24.0-44.0); MEAN PLATELET VOLUME 9.7 fl (9.4-12.3); MONOCYTES ABSOLUTE AUTO 0.7 K/mm3 (0.0-0.8); MONOCYTES PERCENT AUTO 6.3 % (0.0-8.0); NEUTROPHILS ABSOLUTE AUTO 8.7 K/mm3 (1.8-7.7); NEUTROPHILS PERCENT AUTO 83.0 % (41.0-71.0); NRBC ABSOLUTE 0.00 (0.00-0.02); NRBC PERCENT 0.0 % (0.0-0.2); RED BLOOD CELL COUNT 4.67 M/mm3 (4.10-5.30); WHITE BLOOD CELL COUNT,WBC 10.45 K/mm3 (3.9-11.3)
[2025-06-10 09:32] LABS: PLATELET COUNT,PLT 280 K/mm3 (150-400)
[2025-06-10] MEDS: Furosemide 40 MG/4 ML VIAL IVPUSH ONE (09:35)
[2025-06-10 09:37] LABS: INR 2.24
[2025-06-10 09:51] LABS: LACTIC ACID 1.4 mmol/L (0.4-2.0)
[2025-06-10 09:54] LABS: A/G RATIO 0.7 (1-2); ALANINE AMINOTRANSFERASE,ALT 18.0 U/L (14-59); ASPARTATE AMNIOTRANSFERASE,AST 18.0 U/L (15-37); BILIRUBIN TOTAL 1.0 mg/dL (0.2-1.0); BLOOD UREA NITROGEN,BUN 19.0 mg/dL (7-18); CHLORIDE,CL 99.0 mEq/L (98-107); CREATININE 0.8 mg/dL (0.55-1.02); EST CRCL DRUG DOSING (CG) 50.85 mL/min; ESTIMATED GFR 76.0 mL/min (>60); GLUCOSE RANDOM 200.0 mg/dL (70-99); POTASSIUM,K 4.3 mEq/L (3.5-5.1); PROTEIN TOTAL,TP 7.1 g/dl (6.4-8.2); SODIUM,NA 143.0 mEq/L (136-145); TROPONIN I HIGH SENSITIVITY 19.0 pg/mL (<=51)
[2025-06-10 09:56] LABS: CARBON DIOXIDE,CO2 40.0 mEq/L (21-32)
[2025-06-10 10:37] LABS: APPEARANCE,URINE CLEAR (Clear); GLUCOSE,URINE NEGATIVE (Negative); OCCULT BLOOD,URINE 2+ (Negative)
[2025-06-10 10:38] LABS: CORONAVIRUS COVID-19 NAA NEGATIVE (NEGATIVE); INFLUENZA A NAA NEGATIVE (NEGATIVE); RESPIRATORY SYNCYTIAL VIR NAA NEGATIVE (NEGATIVE)
[2025-06-10] MEDS: Magnesium Sulf/Wat 4 GM/50 mL 4 GM in Premix Bag 1 BAG IV ONE (11:04)
== END 2025-06-10 11:40 ==
LOC: JD.ED 08:42
DX: J90 Pleural effusion, not elsewhere classified (principal); I48.91 Unspecified atrial fibrillation; I11.0 Hypertensive heart disease with heart failure; I50.9 Heart failure, unspecified; E78.00 Pure hypercholesterolemia, unspecified; J44.89 Other specified chronic obstructive pulmonary disease; E66.9 Obesity, unspecified; Z68.35 Body mass index [BMI] 35.0-35.9, adult; Z86.16 Personal history of COVID-19; Z90.49 Acquired absence of other specified parts of digestive tract; Z88.5 Allergy status to narcotic agent; Z88.2 Allergy status to sulfonamides; Z79.01 Long term (current) use of anticoagulants; Z79.51 Long term (current) use of inhaled steroids; Z79.899 Other long term (current) drug therapy
CPT/HCPCS: 36415; 71045; 80053; 81001; 83605; 83690; 83735; 83880; 84484; 85025; 85610; 87040; 87086; 87088; 87154; 87186; 87637; 93005; 94640; 94660; 96365; 96375; 99285; A9270; J0696; J1938; J2919; J3475

== ENCOUNTER 2025-07-10 13:31 | Inpatient (IN) | payer MEDICARE, OTHER ==
[2025-07-10 13:53] LABS: BASOPHILS ABSOLUTE AUTO 0.1 K/mm3 (0.0-0.2); BASOPHILS PERCENT AUTO 0.9 % (0.0-1.0); EOSINOPHILS ABSOLUTE AUTO 0.3 K/mm3 (0.0-0.4); EOSINOPHILS PERCENT AUTO 3.8 % (0.0-6.0); IMMATURE GRAN ABSOLUTE AUTO 0.02 K/mm3 (0.00-0.05); IMMATURE GRAN PERCENT AUTO 0.3 % (0.0-0.4); LYMPHOCYTES ABSOLUTE AUTO 0.9 K/mm3 (1.0-4.8); LYMPHOCYTES PERCENT AUTO 13.0 % (24.0-44.0); MEAN PLATELET VOLUME 10.0 fl (9.4-12.3); MONOCYTES ABSOLUTE AUTO 0.7 K/mm3 (0.0-0.8); MONOCYTES PERCENT AUTO 10.0 % (0.0-8.0); NEUTROPHILS ABSOLUTE AUTO 4.9 K/mm3 (1.8-7.7); NEUTROPHILS PERCENT AUTO 72.0 % (41.0-71.0); NRBC ABSOLUTE 0.00 (0.00-0.02); NRBC PERCENT 0.0 % (0.0-0.2); PLATELET COUNT,PLT 286 K/mm3 (150-400); RED BLOOD CELL COUNT 4.60 M/mm3 (4.10-5.30); WHITE BLOOD CELL COUNT,WBC 6.82 K/mm3 (3.9-11.3)
[2025-07-10 14:10] LABS: INR 3.24
[2025-07-10 14:11] LABS: BASE EXCESS ARTERIAL 10.1 (-2-2.0); BICARBONATE,ARTERIAL 38.6 meq/L (22.0-26.0); O2 SATURATION ARTERIAL 98.8 % (96.0-97.0); PCO2 ARTERIAL 70.0 mmHg (35.0-45.0); PO2 ARTERIAL 93.0 mmHg (80.0-100.0)
[2025-07-10] MEDS: Diltiazem 25 MG/5 ML SDV IVPUSH ONE (14:11)
[2025-07-10 14:17] LABS: A/G RATIO 0.8 (1-2); ALANINE AMINOTRANSFERASE,ALT 15.0 U/L (14-59); ASPARTATE AMNIOTRANSFERASE,AST 12.0 U/L (15-37); BILIRUBIN TOTAL 0.6 mg/dL (0.2-1.0); BLOOD UREA NITROGEN,BUN 23.0 mg/dL (7-18); CARBON DIOXIDE,CO2 38.0 mEq/L (21-32); CHLORIDE,CL 101.0 mEq/L (98-107); CREATINE KINASE,CK 35.0 U/L (26-192); CREATININE 0.9 mg/dL (0.55-1.02); EST CRCL DRUG DOSING (CG) 45.2 mL/min; ESTIMATED GFR 66.0 mL/min (>60); GLUCOSE RANDOM 132.0 mg/dL (70-99); POTASSIUM,K 4.9 mEq/L (3.5-5.1); PROTEIN TOTAL,TP 6.8 g/dl (6.4-8.2); SODIUM,NA 141.0 mEq/L (136-145); TROPONIN I HIGH SENSITIVITY 11.0 pg/mL (<=51)
[2025-07-10] MEDS: Furosemide 40 MG/4 ML VIAL IVPUSH ONE (16:04)
[2025-07-11] MEDS: Dexamethasone 10 MG/ML SDV IV ONE (01:36)
[2025-07-11 07:51] LABS: BASE EXCESS ARTERIAL 10.6 (-2-2.0); BICARBONATE,ARTERIAL 38.1 meq/L (22.0-26.0); O2 SATURATION ARTERIAL 95.6 % (96.0-97.0); PCO2 ARTERIAL 63.0 mmHg (35.0-45.0); PO2 ARTERIAL 69.0 mmHg (80.0-100.0)
[2025-07-11] MEDS: LORazepam 2 MG/ML SDV IVPUSH STA (08:05)
[2025-07-11] MEDS: methylPREDNISolone Sodium Succinate 125 MG/2 ML SDV IVPUSH ONE (08:08)
[2025-07-11] MEDS: Furosemide 40 MG/4 ML VIAL IVPUSH ONE (08:11)
[2025-07-11 08:22] LABS: BASOPHILS ABSOLUTE AUTO 0.0 K/mm3 (0.0-0.2); BASOPHILS PERCENT AUTO 0.4 % (0.0-1.0); EOSINOPHILS ABSOLUTE AUTO 0.0 K/mm3 (0.0-0.4); EOSINOPHILS PERCENT AUTO 0.2 % (0.0-6.0); IMMATURE GRAN ABSOLUTE AUTO 0.01 K/mm3 (0.00-0.05); IMMATURE GRAN PERCENT AUTO 0.2 % (0.0-0.4); LYMPHOCYTES ABSOLUTE AUTO 0.4 K/mm3 (1.0-4.8); LYMPHOCYTES PERCENT AUTO 6.5 % (24.0-44.0); MEAN PLATELET VOLUME 9.6 fl (9.4-12.3); MONOCYTES ABSOLUTE AUTO 0.1 K/mm3 (0.0-0.8); MONOCYTES PERCENT AUTO 1.1 % (0.0-8.0); NEUTROPHILS ABSOLUTE AUTO 4.9 K/mm3 (1.8-7.7); NEUTROPHILS PERCENT AUTO 91.6 % (41.0-71.0); NRBC ABSOLUTE 0.00 (0.00-0.02); NRBC PERCENT 0.0 % (0.0-0.2); PLATELET COUNT,PLT 242 K/mm3 (150-400); RED BLOOD CELL COUNT 4.32 M/mm3 (4.10-5.30); WHITE BLOOD CELL COUNT,WBC 5.35 K/mm3 (3.9-11.3)
[2025-07-11 08:49] LABS: A/G RATIO 0.8 (1-2); ASPARTATE AMNIOTRANSFERASE,AST 11.0 U/L (15-37); BILIRUBIN TOTAL 0.8 mg/dL (0.2-1.0); BLOOD UREA NITROGEN,BUN 26.0 mg/dL (7-18); CARBON DIOXIDE,CO2 35.0 mEq/L (21-32); CHLORIDE,CL 99.0 mEq/L (98-107); CREATININE 0.7 mg/dL (0.55-1.02); EST CRCL DRUG DOSING (CG) 58.12 mL/min; ESTIMATED GFR 89.0 mL/min (>60); GLUCOSE RANDOM 172.0 mg/dL (70-99); POTASSIUM,K 4.7 mEq/L (3.5-5.1); PROTEIN TOTAL,TP 6.4 g/dl (6.4-8.2); SODIUM,NA 137.0 mEq/L (136-145)
[2025-07-11 09:13] LABS: ALANINE AMINOTRANSFERASE,ALT 11.0 U/L (14-59)
[2025-07-11] MEDS: LORazepam 2 MG/ML SDV IVPUSH PRN (13:07)
[2025-07-11] MEDS ORDERED: Sennosides/Docusate Sodium 50-8.6 MG Tab PO PRN (17:54)
[2025-07-11] MEDS ORDERED: 50% Dextrose in Water 50 ML Syringe IVPUSH PRN (18:04)
[2025-07-11] MEDS: Iopamidol 755 Mg/ML 100 ML Bottle IVPUSH ONE ×2 (18:22→20:12)
[2025-07-11] MEDS: methylPREDNISolone Sodium Succinate 40 MG/1 ML SDV IVPUSH SCH (19:02)
[2025-07-11] MEDS: LORazepam 2 MG/ML SDV IV PRN (20:08)
[2025-07-11] MEDS: Insulin Lispro 100 Unit/ML 3 ML KwikPen SUBCUT SCH (20:12)
[2025-07-12 05:44] LABS: BASOPHILS ABSOLUTE AUTO 0.0 K/mm3 (0.0-0.2); BASOPHILS PERCENT AUTO 0.1 % (0.0-1.0); EOSINOPHILS ABSOLUTE AUTO 0.0 K/mm3 (0.0-0.4); EOSINOPHILS PERCENT AUTO 0.0 % (0.0-6.0); IMMATURE GRAN ABSOLUTE AUTO 0.05 K/mm3 (0.00-0.05); IMMATURE GRAN PERCENT AUTO 0.5 % (0.0-0.4); LYMPHOCYTES ABSOLUTE AUTO 0.3 K/mm3 (1.0-4.8); LYMPHOCYTES PERCENT AUTO 3.7 % (24.0-44.0); MEAN PLATELET VOLUME 10.1 fl (9.4-12.3); MONOCYTES ABSOLUTE AUTO 0.2 K/mm3 (0.0-0.8); MONOCYTES PERCENT AUTO 1.7 % (0.0-8.0); NEUTROPHILS ABSOLUTE AUTO 8.7 K/mm3 (1.8-7.7); NEUTROPHILS PERCENT AUTO 94.0 % (41.0-71.0); NRBC ABSOLUTE 0.00 (0.00-0.02); NRBC PERCENT 0.0 % (0.0-0.2); PLATELET COUNT,PLT 259 K/mm3 (150-400); RED BLOOD CELL COUNT 4.28 M/mm3 (4.10-5.30); WHITE BLOOD CELL COUNT,WBC 9.24 K/mm3 (3.9-11.3)
[2025-07-12 05:54] LABS: A/G RATIO 0.8 (1-2); ALANINE AMINOTRANSFERASE,ALT 12.0 U/L (14-59); ASPARTATE AMNIOTRANSFERASE,AST 9.0 U/L (15-37); BILIRUBIN TOTAL 0.9 mg/dL (0.2-1.0); BLOOD UREA NITROGEN,BUN 38.0 mg/dL (7-18); CARBON DIOXIDE,CO2 32.0 mEq/L (21-32); CHLORIDE,CL 97.0 mEq/L (98-107); CREATININE 1.0 mg/dL (0.55-1.02); EST CRCL DRUG DOSING (CG) 40.68 mL/min; ESTIMATED GFR 58.0 mL/min (>60); GLUCOSE RANDOM 187.0 mg/dL (70-99); INR 1.06; PHOSPHORUS 3.7 mg/dL (2.6-4.7); POTASSIUM,K 3.8 mEq/L (3.5-5.1); PROTEIN TOTAL,TP 6.5 g/dl (6.4-8.2); SODIUM,NA 139.0 mEq/L (136-145)
[2025-07-12] MEDS: Magnesium Sulfat/D5W 1GM/100ML 1 GM in Premix Bag 1 BAG IV ONE (11:27)
[2025-07-12] MEDS: Potassium Chloride 20 MEQ Tab.ER PO ONE (11:28)
[2025-07-12] MEDS: Furosemide 40 MG/4 ML VIAL IVPUSH ONE (14:09)
[2025-07-12] MEDS: LORazepam 2 MG/ML SDV IV PRN (16:56)
[2025-07-13 09:28] LABS: INR 1.08
[2025-07-13 09:31] LABS: BLOOD UREA NITROGEN,BUN 55.0 mg/dL (7-18); CARBON DIOXIDE,CO2 35.0 mEq/L (21-32); CHLORIDE,CL 98.0 mEq/L (98-107); CREATININE 0.9 mg/dL (0.55-1.02); EST CRCL DRUG DOSING (CG) 45.2 mL/min; ESTIMATED GFR 66.0 mL/min (>60); GLUCOSE RANDOM 188.0 mg/dL (70-99); PHOSPHORUS 3.9 mg/dL (2.6-4.7); POTASSIUM,K 3.7 mEq/L (3.5-5.1); SODIUM,NA 139.0 mEq/L (136-145)
[2025-07-14] MEDS: LORazepam 2 MG/ML SDV IV PRN (09:43)
[2025-07-15] MEDS: Metoprolol Tartrate 5 MG/5 ML SDV IVPUSH PRN (11:10)
[2025-07-15] MEDS: Metoprolol Tartrate 5 MG/5 ML SDV IVPUSH ONE (11:12)
[2025-07-15] MEDS: Furosemide 40 MG/4 ML VIAL IVPUSH ONE ×4 (11:54→23:13)
[2025-07-15] MEDS: Amiodarone 360 MG/200 ML 360 MG/200 ML BAG IV ONE ×2 (12:07→15:43)
[2025-07-15] MEDS ORDERED: Amiodarone 360 MG/200 ML 540 MG/300 ML BAG IV ONE (15:15)
[2025-07-15] MEDS: Amiodarone 360 MG/200 ML 540 MG/300 ML BAG IV ONE (17:41)
[2025-07-15 21:02] LABS: BLOOD UREA NITROGEN,BUN 59.0 mg/dL (7-18); CARBON DIOXIDE,CO2 35.0 mEq/L (21-32); CHLORIDE,CL 100.0 mEq/L (98-107); CREATININE 0.9 mg/dL (0.55-1.02); EST CRCL DRUG DOSING (CG) 45.2 mL/min; ESTIMATED GFR 66.0 mL/min (>60); GLUCOSE RANDOM 207.0 mg/dL (70-99); SODIUM,NA 141.0 mEq/L (136-145)
[2025-07-15 21:05] LABS: POTASSIUM,K 4.3 mEq/L (3.5-5.1)
[2025-07-16 06:12] LABS: BASOPHILS ABSOLUTE AUTO 0.0 K/mm3 (0.0-0.2); BASOPHILS PERCENT AUTO 0.3 % (0.0-1.0); EOSINOPHILS ABSOLUTE AUTO 0.1 K/mm3 (0.0-0.4); EOSINOPHILS PERCENT AUTO 0.7 % (0.0-6.0); IMMATURE GRAN ABSOLUTE AUTO 0.10 K/mm3 (0.00-0.05); IMMATURE GRAN PERCENT AUTO 1.1 % (0.0-0.4); LYMPHOCYTES ABSOLUTE AUTO 0.6 K/mm3 (1.0-4.8); LYMPHOCYTES PERCENT AUTO 6.1 % (24.0-44.0); MEAN PLATELET VOLUME 10.5 fl (9.4-12.3); MONOCYTES ABSOLUTE AUTO 0.8 K/mm3 (0.0-0.8); MONOCYTES PERCENT AUTO 8.1 % (0.0-8.0); NEUTROPHILS ABSOLUTE AUTO 7.9 K/mm3 (1.8-7.7); NEUTROPHILS PERCENT AUTO 83.7 % (41.0-71.0); NRBC ABSOLUTE 0.03 (0.00-0.02); NRBC PERCENT 0.3 % (0.0-0.2); RED BLOOD CELL COUNT 4.66 M/mm3 (4.10-5.30); WHITE BLOOD CELL COUNT,WBC 9.40 K/mm3 (3.9-11.3)
[2025-07-16 06:14] LABS: PLATELET COUNT,PLT 183 K/mm3 (150-400)
[2025-07-16 06:26] LABS: A/G RATIO 0.9 (1-2); ALANINE AMINOTRANSFERASE,ALT 23.0 U/L (14-59); ASPARTATE AMNIOTRANSFERASE,AST 14.0 U/L (15-37); BILIRUBIN TOTAL 0.7 mg/dL (0.2-1.0); BLOOD UREA NITROGEN,BUN 58.0 mg/dL (7-18); CARBON DIOXIDE,CO2 36.0 mEq/L (21-32); CHLORIDE,CL 100.0 mEq/L (98-107); CREATININE 0.8 mg/dL (0.55-1.02); EST CRCL DRUG DOSING (CG) 50.85 mL/min; ESTIMATED GFR 76.0 mL/min (>60); GLUCOSE RANDOM 207.0 mg/dL (70-99); POTASSIUM,K 3.8 mEq/L (3.5-5.1); PROTEIN TOTAL,TP 6.1 g/dl (6.4-8.2); SODIUM,NA 142.0 mEq/L (136-145)
[2025-07-16] MEDS: Furosemide 40 MG/4 ML VIAL IVPUSH SCH (09:09)
[2025-07-16] MEDS ORDERED: Furosemide 40 MG/4 ML VIAL IVPUSH ONE (23:00)
== END 2025-07-16 20:28 | disposition expired | DRG 193 ==
LOC: JD.ED 13:31 → JD.ICU 07-11 15:59
PROVIDERS: ADMIT Student in an Organized Health Care Education/Training Program; ATTEND Family Medicine
PROC: 5A09357 Assistance with Respiratory Ventilation, Less than 24 Consecutive Hours, Continuous Positive Airway Pressure (ICD-10-PCS; principal; 2025-07-10)
PROC: 4A133R1 Monitoring of Arterial Saturation, Peripheral, Percutaneous Approach (ICD-10-PCS; principal; 2025-07-10)
PROC: 3E03329 Introduction of Other Anti-infective into Peripheral Vein, Percutaneous Approach (ICD-10-PCS; principal; 2025-07-10)
DX: J18.9 Pneumonia, unspecified organism (principal); J81.0 Acute pulmonary edema; J96.01 Acute respiratory failure with hypoxia; J44.1 Chronic obstructive pulmonary disease with (acute) exacerbation; D49.9 Neoplasm of unspecified behavior of unspecified site; J91.0 Malignant pleural effusion; J44.0 Chronic obstructive pulmonary disease with (acute) lower respiratory infection; J44.89 Other specified chronic obstructive pulmonary disease; J90 Pleural effusion, not elsewhere classified; Z66 Do not resuscitate; Z51.5 Encounter for palliative care; J30.9 Allergic rhinitis, unspecified; I48.91 Unspecified atrial fibrillation; R94.31 Abnormal electrocardiogram [ECG] [EKG]; E78.00 Pure hypercholesterolemia, unspecified; I10 Essential (primary) hypertension; Z68.33 Body mass index [BMI] 33.0-33.9, adult; E86.0 Dehydration; K21.9 Gastro-esophageal reflux disease without esophagitis; R79.83 Abnormal findings of blood amino-acid level; E11.42 Type 2 diabetes mellitus with diabetic polyneuropathy; E66.9 Obesity, unspecified; M54.9 Dorsalgia, unspecified; G89.29 Other chronic pain; R59.0 Localized enlarged lymph nodes; Z86.73 Personal history of transient ischemic attack (TIA), and cerebral infarction without residual deficits; Z68.35 Body mass index [BMI] 35.0-35.9, adult; Z86.16 Personal history of COVID-19; Z90.49 Acquired absence of other specified parts of digestive tract; Z98.890 Other specified postprocedural states; Z79.52 Long term (current) use of systemic steroids; Z79.899 Other long term (current) drug therapy; Z88.2 Allergy status to sulfonamides; Z79.01 Long term (current) use of anticoagulants; Z85.118 Personal history of other malignant neoplasm of bronchus and lung; Z87.891 Personal history of nicotine dependence; Z85.828 Personal history of other malignant neoplasm of skin; Z88.5 Allergy status to narcotic agent
CPT/HCPCS: 36415 ×2; 36600 ×2; 71045 ×2; 80053 ×2; 82550; 82803 ×2; 83605; 83690; 83735; 83880; 84484; 85025 ×2; 85610; 87040 ×2; 87428; 93005; 94640 ×6; A9270 ×9; J0692 ×2; J1100; J1938 ×2; J2060 ×3; J2919; J3490 ×2; J7030; 71275; 71275-26; 80048; 82947; 84100; 86140; 87641; 93010; 94660; 94667; 94761; 94762; 96374; 99285; 99285-25; J0283; J0696; J1171; J1271; J1308; J2543; J3475; Q9967